=== PATIENT | male | born 1965 | race Caucasian/White ===

== ENCOUNTER → 2019-02-01 | Outpatient (CLI) | payer BC ==
[~2019-02-01] MED LIST: OLME40TA14 PO
--- NOTE | 2019-02-01 10:40 | Diagnostic Imaging Report ---
PROCEDURE: US right lower extremity venous. TECHNIQUE: Multiple real-time grayscale images were obtained over the right lower extremity in various projections. Additional spectral analysis and color Doppler duplex images were also obtained. INDICATION: Right lower extremity pain and swelling. FINDINGS: There is no evidence of right lower extremity DVT. Right lower extremity deep venous system shows normal compressibility with normal response to augmentation and Valsalva. No fluid collection or mass is seen. IMPRESSION: No evidence of right lower extremity DVT. Dictated by: Dictated on workstation # [id number]
== END ==
LOC: RAD 09:30
PROVIDERS: ATTEND Family Medicine
DX: M79.89 Other specified soft tissue disorders (principal)

== ENCOUNTER 2021-09-23 10:42 | Outpatient (CLI) | payer BC ==
[~2021-09-23] VITALS: Ht 188 cm; Wt 113.6 kg
[2021-09-23 10:46] VITALS: BP 175/98
[2021-09-23] MEDS ORDERED: ONDANSETRON 4 MG/2 ML (SDV) Z0FRAN IV PRN (11:00)
[2021-09-23] MEDS ORDERED: diphenhydrAMINE 50 MG/ML INJ (BENADRYL) IV PRN (11:00)
[2021-09-23] MEDS ORDERED: EPINEPHrine INJECTION 1 MG/ML AMP IM PRN (11:00)
[2021-09-23] MEDS ORDERED: ACETAMINOPHEN 500 MG TAB (TYLENOL) PO PRN (11:00)
[2021-09-23] MEDS ORDERED: CASIRIVIMAB/IMDEVIMAB 1,200 MG in NS (IVPB) 250 ML IV ONE (11:00)
[2021-09-23 11:47] VITALS: BP 175/102
== END 2021-09-23 12:13 | disposition home or self-care (01) ==
LOC: INFUSION 10:42
PROVIDERS: ATTEND Nurse Practitioner Family
DX: U07.1 COVID-19 (principal)

== ENCOUNTER 2022-11-24 06:37 | Outpatient (CLI) | payer BC ==
[~2022-11-24] VITALS: Ht 188 cm; Wt 121.6 kg
[2022-11-24] MEDS ORDERED: CALC600T91 PO (12:36)
[2022-11-24] MEDS ORDERED: TADA10TA PO (12:36)
[2022-11-24] MEDS ORDERED: MULT-593 PO (12:36)
[2022-11-24] MEDS ORDERED: LOSA50TA63 PO (12:36)
== END 2022-11-24 12:41 | disposition home or self-care (01) ==
LOC: PREOP 06:37
PROVIDERS: ATTEND Internal Medicine
DX: Z01.818 Encounter for other preprocedural examination (principal)

== ENCOUNTER 2022-12-03 08:19 | Day surgery (SDC) | payer BC ==
--- NOTE | 2022-11-22 15:58 | HISTORY AND PHYSICAL ---
DATE OF SERVICE: 12/03/2022 COLONOSCOPY HISTORY AND PHYSICAL HISTORY OF PRESENT ILLNESS: The patient is a 57-year-old white male who presented for a new patient evaluation today. He has a very strong family history for colon cancer and had been 10 years since his last colonoscopy, at which time, no evidence for neoplasia was identified on reviewing electronic medical record. He does report some intermittent small volume rectal bleeding, mostly blood on the toilet paper. This is attributed to hemorrhoids. This has not changed for over 5 years. He has had no abdominal pain, change in bowel habits. At one point, he had lost 100 pounds after gastric sleeve surgery four to five years ago, he has gained about 40 of it back for his reports. PAST MEDICAL HISTORY: Significant for obstructive sleep apnea for which he has been on CPAP therapy for over 10 years. He reports that he tolerates it well and essentially has 100% compliance. He has a history of hypertension for which he takes losartan 50 mg daily his only other prescription of Cialis as needed for erectile dysfunction, prior to sexual relations. PAST SURGICAL HISTORY: Other than gastric sleeve resection, he had had a total right hip done 12 years ago. This was for osteoarthritis. ALLERGIES: NO KNOWN MEDICAL ALLERGIES. FAMILY HISTORY: His father was diagnosed with colon cancer in his 40s and had a colostomy for a while, ultimately at the age of 84. He has had one brother with colon cancer and two half-sisters, diagnosed with colon cancer, all in their early 50s. One sister succumbed at the age of 51 to colon cancer of the lung; other one is still living. SOCIAL HISTORY: He reports occasional moderate alcohol consumption. He has no past smoking history. He has had a [employer] [facility]. REVIEW OF SYSTEMS: CONSTITUTIONAL: Denies night sweats, chills, fever. He has gained about 10 pounds of weight over the past year. GASTROINTESTINAL: As noted in the HPI. PULMONARY: Denies cough, wheezing or shortness of breath. CARDIOVASCULAR: Denies orthopnea, PND, pedal edema or chest discomfort. PHYSICAL EXAMINATION: GENERAL: Reveals a white male who appears to be in no acute distress. VITAL SIGNS: Weight 268 pounds, blood pressure 150/92. HEENT: Unremarkable. Sclerae nonicteric. Oral cavity clear. Mallampati 2 pharyngeal configuration, no evidence for exudate. Ear canals clear with normal TMs. NECK: Revealed no JVD, adenopathy or bruits. CHEST: Clear to auscultation. CARDIOVASCULAR: Reveals a regular rate and rhythm without murmur, S3, or S4. ABDOMEN: Soft, supple without mass, organomegaly, or tenderness. EXTREMITIES: Reveal no cyanosis, clubbing or edema. SKIN: Evaluation reveals no suspicious nevi. ASSESSMENT AND PLAN: 1. Intermittent small volume bright red blood per rectum with strong family history for colon cancer. He is due for repeat screening colonoscopy and did advocate no longer than 5-year interval even if this colonoscopy reveals no evidence for neoplasia. Prep instructions were given. Questions answered. 2. Hypertension. The patient is a little bit anxious during the interview. We will monitor blood pressure during his procedure. If it is still staying in this range, I advocate increase in losartan. 3. Obstructive sleep apnea. The patient reports good compliance with CPAP without difficulty. Continue. We will obtain screening CBC, CMP, and lipid panel and PSA. Job ID: [id number] DocumentID: [id number] Dictated Date: 11/22/2022 15:23:52 Shank Pinner Date: 11/22/2022 15:56:00 Dictated By: NAJMA BARLOW MD MTDD
[2022-12-03] VITALS (8 sets, daily range): BP systolic 135–202; BP diastolic 84–100
[~2022-12-03] VITALS: Ht 188 cm; Wt 121.6 kg
[~2022-12-03 08:19] MED LIST changes: +CALC600T91 PO; +LOSA50TA63 PO; +MULT-593 PO; +TADA10TA PO
[2022-12-03] MEDS ORDERED: LACTATED RINGERS 1,000 ML IV STA (08:32)
[2022-12-03] MEDS ORDERED: LACTATED RINGERS 1,000 ML IV ONE (08:36)
--- NOTE | 2022-12-03 09:07 | Pre-Op Note & Conscious Sedat ---
Pre-Operative Progress Note Date H&P Reviewed: Dec 03, 2022 Time H&P Reviewed: 09:07 History & Physical: H&P Reviewed, Patient Examed, No changes noted Pre-Op Diagnosis: screening Conscious Sedation Pre-Proced ASA Score 3 For ASA 3 and 4: Consider anesthesia and medical clearance. Also, for patients with a history of failed moderate sedation consider anesthesia. Airway Lungs Heart ASA score ASA 1: a normal healthy patient ASA 2: a patient with a mild systemic disease (mid diabetes, controlled hypertension, obesity ASA 3: a patient with a severe systemic disease that limits activity (angina, COPD, prior Myocardial infarction) ASA 4: a patient with an incapacitating disease that is a constant threat to life (CHF, renal failure) ASA 5: a moribund patient not expected to survive 24 hrs. (ruptured aneurysm) ASA 6: a declared brain- patient whose organs are being harvested. For emergent operations, add the letter E after the classification Mallampati Classification Grade 3 Sedation Plan Analgesia, Amnesia, Plan communicated to team members, Discussed options with patient/fam, Discussed risks with patient/fam The patient is an appropriate candidate to undergo the planned procedure, sedation, and anesthesia. The patient immediately re-assessed prior to indication. NAJMA BARLOW MD Dec 03, 2022 09:07
[2022-12-03] MEDS ORDERED: PROPOFOL INJECTION 50 ML IV ONE (09:46)
[2022-12-03] MEDS ORDERED: MIDAZOLAM 2 MG/2 ML (VERSED) VIAL ONE (09:46)
--- NOTE | 2022-12-03 10:23 | Progress Note-Post Operative ---
Post-Procedure Note Physician (s)/Family Member Caretaker (s) Physician NAJMA BARLOW MD Pre-Procedure Diagnosis Pre-Procedure Diagnosis: screening Post-Procedure Diagnosis Post-operative diagnosis: Prior to undergoing colonoscopy digital rectal evaluation was performed. Anal central tone was normal and the perianal reflexes intact. Prostate is mildly enlarged and there was one 5 to 6 mm nodule noted in the superior right prostatic lobe no other abnormalities are noted on digital inspection alignment of the anal canal or distal rectal vault. The colonoscope was inserted into the rectum and under direct physician advanced the cecum. The cecum was then divided by indication of the ileocecal valve and cecal strap. Quality prep was good. Careful inspection was made as the colonoscope withdrawn. Findings: Several grade 1 internal hemorrhoid complexes were noted with telangiectasia of the anal canal. The rectum was unremarkable otherwise. Present at the rectosigmoid junction was a 5 mm sessile polyp was photographed and biopsied and ablated with hot forceps. The sigmoid colon descending colon splenic flexure transverse colon hepatic flexure ascending colon and cecum were unremarkable. Assessment: 1. There was 5 to 6 mm nodule noted on the superior aspect of the right prostate lobe with mild generalized enlargement. We will review PSA results obtain if not done and recommend urologic referral. 2. 1 diminutive polyp was removed from the rectosigmoid junction as long as there are no surprises on histopathology would likely be recommending a 5-year surveillance colonoscopy considering family history. No other abnormalities noted on colonoscopy other than several grade 1 internal hemorrhoid complexes. NAJMA BARLOW MD Dec 03, 2022 10:23
== END 2022-12-03 11:20 | disposition home or self-care (01) ==
LOC: ENDO 08:19
PROVIDERS: ATTEND Internal Medicine
DX: K63.5 Polyp of colon (principal); K64.0 First degree hemorrhoids; N40.0 Benign prostatic hyperplasia without lower urinary tract symptoms; I78.1 Nevus, non-neoplastic; N40.2 Nodular prostate without lower urinary tract symptoms; E66.9 Obesity, unspecified; I10 Essential (primary) hypertension; G73.3 Myasthenic syndromes in other diseases classified elsewhere; Z68.34 Body mass index [BMI] 34.0-34.9, adult; Z87.891 Personal history of nicotine dependence
CPT/HCPCS: 88305

== ENCOUNTER → 2023-08-30 | Outpatient (RCR) | payer BC | END | disposition home or self-care (01) | PROVIDERS: ATTEND Orthopaedic Surgery | DX: M25.551 Pain in right hip (principal) ==

== ENCOUNTER 2023-09-26 14:31 | Outpatient (RCR) | payer BC | END 2023-09-29 16:06 | disposition home or self-care (01) | PROVIDERS: ATTEND Orthopaedic Surgery | DX: M25.551 Pain in right hip (principal) ==